=== PATIENT | female | born 1960 | race Caucasian/White ===

== ENCOUNTER → 2016-03-01 | Outpatient (CLI) | payer BC, OTHER ==
--- NOTE | 2016-03-01 10:56 | REPMRS ---
Patient History The patient states she had a clinical breast exam in 02/2016. Family history of breast cancer in sister under age 50. Digital Woman Screen Mammo: March 01, 2016 - Exam #: [id number] Bilateral CC and MLO view(s) were taken. Technologist: Lala Jimenez Technologist Prior study comparison: March 01, 2015, digital woman screen mammo performed at [facility]. January 17, 2014, digital woman screen mammo performed at [facility]. FINDINGS: There are scattered fibroglandular densities. There has been no change in the appearance of the mammogram from the prior studies. There is a mild amount of residual fibroglandular tissue which is fairly symmetric. There is no interval development of dominant mass, architectural distortion, or clustered microcalcification suggestive of malignancy. ASSESSMENT: BI-RADS/ACR category 1 mammogram. Negative. Recommendation Routine screening mammogram in 1 year (for women over age 40). This mammogram was interpreted with the aid of an FDA-approved computer-aided dectection system. Electronically Signed By: Javier Dumont MD 03/01/16 [id number]
--- NOTE | 2016-03-04 10:08 | DEXA ---
AP SPINE L1 - L4 1.234 0.3 0.7 LT FEMUR TOTAL 1.027 0.2 0.5 RT FEMUR TOTAL 1.012 0.0 0.4 TOTAL BODY TOTAL OTHER DUAL FEMUR FRAX* ASSESSMENT Risk factors: None. 10 year probability of fracture Major osteoporotic fracture 5.7 % Hip fracture 0.2 % COMMENTS: Normal bone densitometry of the spine and hips. The density of the spine has decreased 1.0% since 09/06/2010. The density of the left hip has decreased 4.7% since 09/06/2010. The density of the right hip has decreased 1.8% since 09/06/2010. The decreased density of the spine does not represent a significant change. The decreased density of the left hip does represent a significant change. The decreased density of the right hip does not represent a significant change. FOLLOW-UP: Recommendation for the next bone density exam: 5 years. ERIC
== END ==
LOC: M WHC 09:37
PROVIDERS: ATTEND Nurse Practitioner Women's Health
DX: Z12.31 Encounter for screening mammogram for malignant neoplasm of breast (principal); Z78.0 Asymptomatic menopausal state; Z13.820 Encounter for screening for osteoporosis
CPT/HCPCS: 77080; G0202

== ENCOUNTER → 2016-04-09 | Outpatient (REF) | payer BC, OTHER | LOC: M LAB REF 16:13 | PROVIDERS: ATTEND Physician Assistant | DX: R30.0 Dysuria (principal) ==

== ENCOUNTER → 2016-04-10 | Outpatient (CLI) | payer BC, OTHER ==
--- NOTE | 2016-04-10 15:44 | REP ---
Clinical: Pain with fever and dysuria. Technique: Upright view of the chest with supine and upright views of the abdomen and pelvis. Findings: Frontal upright view of the chest demonstrates no acute cardiopulmonary process or free air below the diaphragm to suspect pneumoperitoneum. Supine and upright views of the abdomen and pelvis demonstrate nonspecific bowel gas pattern without obstruction or perforation. No organomegaly. No abnormal calcifications. Skeletal structures normal for age. Impression: Nonspecific bowel gas pattern. Signed by Yash Redd MD 04/10/2016 03:34 P
[2016-04-10 16:34] LABS: MEAN CORPUSCULAR HEMOGLOBIN 31.6 pg (27.0-33.0); MEAN CORPUSCULAR HGB CONC 34.9 g/dl (32.0-36.5); MEAN CORPUSCULAR VOLUME 90.5 fl (80.0-96.0); RED CELL DISTRIBUTION WIDTH 11.7 % (11.5-14.5); WHITE BLOOD COUNT 11.6 K/mm3 (4.0-10.0)
[2016-04-10 16:41] LABS: ALBUMIN 3.6 GM/DL (3.2-5.2); ANION GAP 8 MEQ/L (8-16); BLOOD UREA NITROGEN 8 MG/DL (7-18); CALCIUM LEVEL 8.9 MG/DL (8.5-10.1); CARBON DIOXIDE LEVEL 31 MEQ/L (21-32); CHLORIDE LEVEL 99 MEQ/L (98-107); CREATININE FOR GFR 0.78 MG/DL (0.55-1.02); GLOMERULAR FILTRATION RATE > 60.0 (>51); GLUCOSE, FASTING 103 MG/DL (70-105); PHOSPHORUS LEVEL 1.7 MG/DL (2.5-4.9); POTASSIUM SERUM 3.7 MEQ/L (3.5-5.1); SODIUM LEVEL 138 MEQ/L (136-145)
[2016-04-10 21:30] LABS: BANDS 1 % (< 11); EOSINOPHILS 1 % (0-5)
== END ==
LOC: M WUC 14:56 → M LRY 14:56
PROVIDERS: ATTEND Physician Assistant
DX: R30.0 Dysuria (principal); M54.5 Low back pain; R50.9 Fever, unspecified

== ENCOUNTER → 2017-03-07 | Outpatient (CLI) | payer BC, OTHER | LOC: M WHC 10:19 | DX: Z12.31 Encounter for screening mammogram for malignant neoplasm of breast (principal) | CPT/HCPCS: 77067 ==

== ENCOUNTER → 2018-03-10 | Outpatient (CLI) | payer BC, OTHER ==
--- NOTE | 2018-03-10 12:57 | REPMRS ---
Patient History The patient states she had a clinical breast exam in 02/2018. Family history of breast cancer under age 50 in sister. No Hormone Replacement Therapy Digital Woman Screen Mammo: March 10, 2018 - Exam #: [id number] Bilateral CC and MLO view(s) were taken. Technologist: Abida Nieto, Technologist Prior study comparison: March 07, 2017, digital woman screen mammo performed at [facility]. March 01, 2016, digital woman screen mammo performed at [facility]. March 01, 2015, digital woman screen mammo performed at [facility]. FINDINGS: There are scattered fibroglandular densities. There is a stable well-circumscribed nodule in the medial aspect of the left breast unchanged from multiple prior studies. There has been no change in the appearance of the mammogram from the prior studies. There is a mild amount of scattered fibroglandular density which is fairly symmetric. There is no interval development of dominant mass, architectural distortion, or clustered microcalcification suggestive of malignancy. 3-D tomosynthesis shows no additional findings. Assessment: BI-RADS/ACR category 2 mammogram. Benign finding(s). Recommendation Routine screening mammogram of both breasts in 1 year (for women over age 40). This patient's Lifetime Breast Cancer RIsk is estimated at 11.6 %. This mammogram was interpreted with the aid of an FDA-approved computer-aided dectection system. Electronically Signed By: Tello Arriaga MD 03/10/18 [id number]
== END ==
LOC: M WHC 08:27
PROVIDERS: ATTEND Nurse Practitioner Women's Health
DX: Z12.31 Encounter for screening mammogram for malignant neoplasm of breast (principal); Z80.3 Family history of malignant neoplasm of breast

== ENCOUNTER → 2019-03-15 | Outpatient (CLI) | payer BC, OTHER ==
--- NOTE | 2019-03-15 08:56 | REPMRS ---
Patient History The patient states she had a clinical breast exam in 2019. Family history of breast cancer under age 50 in sister. No Hormone Replacement Therapy Digital Woman Screen Mammo: March 15, 2019 - Exam #: [id number] Bilateral CC and MLO view(s) were taken. Technologist: Roselyn Linton, Technologist Prior study comparison: March 10, 2018, bilateral digital woman screen mammo performed at [facility]. March 07, 2017, digital woman screen mammo performed at [facility]. March 01, 2016, digital woman screen mammo performed at [facility]. FINDINGS: There are scattered fibroglandular densities. There has been no change in the appearance of the mammogram from the prior studies. There is a mild amount of scattered fibroglandular density which is fairly symmetric. There is no interval development of dominant mass, architectural distortion, or grouped microcalcification suggestive of malignancy. 3-D tomosynthesis shows no additional findings. Assessment: BI-RADS/ACR category 1 mammogram. Negative Mammogram. Recommendation Routine screening mammogram of both breasts in 1 year (for women over age 40). This patient's Lifetime Breast Cancer Risk is estimated at 11.2 %. This mammogram was interpreted with the aid of an FDA-approved computer-aided dectection system. Electronically Signed By: Tello Arriaga MD 03/15/19 0855
== END ==
LOC: M WHC 08:15
PROVIDERS: ATTEND Nurse Practitioner Women's Health
DX: Z12.31 Encounter for screening mammogram for malignant neoplasm of breast (principal); Z80.3 Family history of malignant neoplasm of breast

== ENCOUNTER → 2020-03-24 | Outpatient (CLI) | payer BC, OTHER ==
--- NOTE | 2020-03-24 09:55 | REPMRS ---
Patient History The patient states she had a clinical breast exam in 02/2020 Family history of breast cancer under age 50 in sister. No Hormone Replacement Therapy Digital Woman Screen Mammo: March 24, 2020 - Exam #: [id number] Bilateral CC and MLO view(s) were taken. Technologist: Anitra Rodríguez, Technologist Prior study comparison: March 15, 2019, bilateral digital woman screen mammo performed at [facility]. March 10, 2018, bilateral digital woman screen mammo performed at [facility]. March 07, 2017, digital woman screen mammo performed at [facility]. FINDINGS: The breast tissue is almost entirely fat. The [employer] volumetric breast density category is: A. There has been no change in the appearance of the mammogram from the prior studies. There is no interval development of dominant mass, architectural distortion, or grouped microcalcification typical of malignancy. 3-D tomosynthesis shows no additional findings. Assessment: BI-RADS/ACR category 1 mammogram. Negative Mammogram. Recommendation Routine screening mammogram of both breasts in 1 year (for women over age 40). This patient's [facility] Lifetime Breast Cancer RIsk is estimated at 10.9 %. This mammogram was interpreted with the aid of an FDA-approved computer-aided dectection system. Electronically Signed By: Tello Arriaga MD 03/24/20 0955
== END ==
LOC: M WHC 09:01
PROVIDERS: ATTEND Nurse Practitioner Women's Health
DX: Z12.31 Encounter for screening mammogram for malignant neoplasm of breast (principal); Z80.3 Family history of malignant neoplasm of breast

== ENCOUNTER → 2021-06-18 | Outpatient (CLI) | payer BC | LOC: M WHC 10:42 | PROVIDERS: ATTEND Obstetrics & Gynecology | DX: R92.8 Other abnormal and inconclusive findings on diagnostic imaging of breast (principal); N63.10 Unspecified lump in the right breast, unspecified quadrant ==

== ENCOUNTER → 2021-11-23 | Outpatient (CLI) | payer BC | LOC: M WHC 09:32 | PROVIDERS: ATTEND Obstetrics & Gynecology | DX: Z13.820 Encounter for screening for osteoporosis (principal); R92.8 Other abnormal and inconclusive findings on diagnostic imaging of breast; M85.89 Other specified disorders of bone density and structure, multiple sites | CPT/HCPCS: 77066; 77080; G0279 ==

== ENCOUNTER → 2022-11-29 | Outpatient (CLI) | payer BC | LOC: M WHC 12:30 | PROVIDERS: ATTEND Obstetrics & Gynecology | DX: Z12.31 Encounter for screening mammogram for malignant neoplasm of breast (principal) ==

== ENCOUNTER → 2024-03-29 | Outpatient (CLI) | payer BC | LOC: M WHC 12:16 | PROVIDERS: ATTEND Obstetrics & Gynecology | DX: Z12.31 Encounter for screening mammogram for malignant neoplasm of breast (principal); R92.313 Mammographic fatty tissue density, bilateral breasts ==